=== PATIENT | female | born 1980 | race Caucasian/White ===

== ENCOUNTER 2019-02-25 16:42 | Emergency (ER) | payer MEDICAID ==
[~2019-02-25] VITALS: Ht 157.5 cm; Wt 99.1 kg
[~2019-02-25 16:42] MED LIST: ONDA4TAB6 PO; PHEN-786 PO
[2019-02-25 16:55] VITALS: BP 155/105
[2019-02-25] MEDS ORDERED: CEPH500C5 PO (18:11)
== END 2019-02-25 18:42 | disposition home or self-care (01) ==
LOC: ER 16:42
DX: L03.317 Cellulitis of buttock (principal); F12.90 Cannabis use, unspecified, uncomplicated; F10.99 Alcohol use, unspecified with unspecified alcohol-induced disorder; Z88.5 Allergy status to narcotic agent; Z79.2 Long term (current) use of antibiotics; Z79.899 Other long term (current) drug therapy; Z56.0 Unemployment, unspecified; Y90.9 Presence of alcohol in blood, level not specified
CPT/HCPCS: 99283; 99284

== ENCOUNTER 2019-05-28 10:08 | Emergency (ER) | payer SELFPAY ==
[~2019-05-28] VITALS: Ht 157.5 cm; Wt 99.0 kg
[2019-05-28 10:50] LABS: CLARITY,URINE CLOUDY (Clear); COLOR,URINE YELLOW (Yellow); GLUCOSE, URINE NEGATIVE (Neg); KETONES,URINE NEGATIVE (Neg); LEUKOCYTE ESTERASE ,URINE NEGATIVE (Neg); NITRITES, URINE NEGATIVE (Neg); OCCULT BLOOD,URINE LARGE (Neg); PROTEIN,URINE 30 mg/dl (Neg); UROBILINOGEN,URINE 0.2 E.U/dL (0.2-1.0)
[2019-05-28 10:50] LABS: BASOPHILS # (AUTO) 0.1 X10'3 (0-0.2); BASOPHILS % (AUTO) 0.7 % (0-1); EOSINOPHILS # (AUTO) 0.1 X10'3 (0-0.9); EOSINOPHILS % (AUTO) 0.8 % (0-6); HEMATOCRIT 43.6 % (35.0-45.0); HEMOGLOBIN 15.3 g/dl (12.0-16.0); MEAN CORPUSCULAR HEMOGLOBIN 31.9 PG (27.0-31.0); MEAN CORPUSCULAR HGB CONC 35.1 g/dL (33.0-36.5); MEAN PLATELET VOLUME 7.5 FL (7.4-10.4); MONOCYTES # (AUTO) 0.9 X10'3 (0-0.9); MONOCYTES % (AUTO) 8.4 % (2-12); NEUTROPHILS # (AUTO) 6.4 X10'3 (1.8-7.7); NEUTROPHILS % (AUTO) 61.1 % (42-75); PLATELET COUNT 322 X10'3 (140-440); RED BLOOD COUNT 4.79 X10'6 (4.20-5.60); RED CELL DISTRIBUTION WIDTH 12.7 % (11.5-14.5); WHITE BLOOD COUNT 10.5 X10'3 (4.5-11.0)
[2019-05-28 10:51] LABS: UA COLLECTION TYPE CLN CATCH MIDSTREAM
[2019-05-28 10:57] LABS: BACTERIA,URINE 2+ /HPF (Neg); RBC,URINE TNTC /HPF (0-2); SQUAMOUS EPITHELIAL CELL,UR MODERATE /LPF (FEW)
[2019-05-28 11:07] LABS: ALANINE AMINOTRANSFERASE 44 U/L (12-78); ALBUMIN 3.7 G/DL (3.4-5.0); ALBUMIN/GLOBULIN RATIO 0.9 (1.1-1.5); ALKALINE PHOSPHATASE 66 IU/L (46-116); ANION GAP 11 (8-16); ASPARTATE AMINO TRANSFERASE 17 U/L (10-37); BILIRUBIN,TOTAL 0.4 MG/DL (0.1-1.0); BLOOD UREA NITROGEN 11 MG/DL (7-18); BUN/CREATININE RATIO 11.6 (6.6-38.0); CALCIUM 8.5 MG/DL (8.5-10.1); CHLORIDE 106 MMOL/L (99-107); CREATININE 0.95 MG/DL (0.40-0.90); GLUCOSE 104 MG/DL (70-104); SODIUM 138 MMOL/L (135-145); TOTAL CARBON DIOXIDE 20.8 MMOL/L (24-32); eGFR 65 ML/MIN
[2019-05-28] MEDS ORDERED: morphine 4 MG/ML inj SYRINge IV PRN (11:40)
[2019-05-28] MEDS ORDERED: ondansetron/PF 4mg/2ml inj IV ONE (11:40)
[2019-05-28] MEDS ORDERED: normal saline 1000ML IV soln IVB ONE (11:40)
--- NOTE | 2019-05-28 11:59 | NUR ---
Break RN; Assessed Pt, IV started and medications given. MD Beal evaluated patient.
[2019-05-28] MEDS ORDERED: ketorolac trometh. 30mg/ml inj. IV ONE (12:05)
[2019-05-28 12:28] LABS: URINE HCG NEGATIVE (NEG)
[2019-05-28] MEDS ORDERED: FLO0.4C PO (14:34)
[2019-05-28] MEDS ORDERED: IBUP-1984 PO (14:34)
[2019-05-28] MEDS ORDERED: HYDR-4384 PO (14:34)
[2019-05-28] MEDS ORDERED: ONDA4TAB12 PO (14:34)
[2019-05-28] MEDS ORDERED: HYDROmorphone 1 mg/ml syringe IV ONE (14:35)
[2019-05-28 15:09] VITALS: BP 148/78
== END 2019-05-28 15:19 | disposition home or self-care (01) ==
LOC: ER 10:09
DX: N20.1 Calculus of ureter (principal); R11.2 Nausea with vomiting, unspecified; F12.90 Cannabis use, unspecified, uncomplicated; I10 Essential (primary) hypertension; E78.00 Pure hypercholesterolemia, unspecified; F10.99 Alcohol use, unspecified with unspecified alcohol-induced disorder; Z56.0 Unemployment, unspecified; Y90.9 Presence of alcohol in blood, level not specified
CPT/HCPCS: 36415; 74176; 80053; 81001; 81025; 85025; 87088; 96361; 96374; 96375; 99284; J1170; J1885; J2270; J2405; J7030